=== PATIENT | female | born 1990 ===

== ENCOUNTER 2021-12-16 22:08 | Emergency (ER) | payer OTHER, BC ==
[~2021-12-16] VITALS: Ht 165.1 cm; Wt 102.1 kg
[2021-12-16 23:13] VITALS: BP 135/86
[2021-12-17] MEDS ORDERED: NAP500T PO (00:18)
== END 2021-12-17 01:03 | disposition home or self-care (01) ==
LOC: ER 22:24
DX: S70.02XA Contusion of left hip, initial encounter (principal); S60.221A Contusion of right hand, initial encounter; V43.52XA Car driver injured in collision with other type car in traffic accident, initial encounter; Y93.89 Activity, other specified; Y92.410 Unspecified street and highway as the place of occurrence of the external cause; Y99.8 Other external cause status
CPT/HCPCS: 73120; 81025